=== PATIENT | male | born 1970 | race Two or more races ===

== ENCOUNTER → 2024-11-21 | Outpatient (CLI) | payer MEDICAID | END | disposition home or self-care (01) | LOC: LAB 10:27 | PROVIDERS: ATTEND Urology | DX: R80.9 Proteinuria, unspecified (principal) | CPT/HCPCS: 36415; 82105; 84702 ==

== ENCOUNTER → 2024-12-19 | Outpatient (CLI) | payer MEDICAID | END | disposition home or self-care (01) | LOC: LAB 13:51 | PROVIDERS: ATTEND Urology | DX: R97.20 Elevated prostate specific antigen [PSA] (principal) | CPT/HCPCS: 84153 ==